=== PATIENT | male | born 1950 | race Caucasian/White ===

== ENCOUNTER 2023-08-31 08:45 | Day surgery (SDC) | payer MEDICARE, OTHER ==
[2023-08-31] VITALS (9 sets, daily range): BP systolic 127–152; BP diastolic 69–109; PULSE 54–79; RESP 12; TEMP 97.5; O2SAT 95–100
[~2023-08-31] VITALS: Ht 170.2 cm; Wt 71.3 kg
[~2023-08-31 08:45] MED LIST: PRAV20TA4 PO
[2023-08-31] MEDS ORDERED: normal saline 1,000 ML IV SCH (09:25)
[2023-08-31] MEDS ORDERED: diphenhydrAMINE 25mg capsule PO PRN (09:25)
[2023-08-31] MEDS ORDERED: sodium bicarbonate 1meq/ml syr 150 ML in dextrose 5%-water 1,000 ML IV SCH (09:25)
[2023-08-31] MEDS ORDERED: GABA-530 PO (09:36)
[2023-08-31] MEDS ORDERED: TERA5CAP4 PO (09:36)
[2023-08-31] MEDS ORDERED: CYAN-34 PO (09:37)
[2023-08-31] MEDS ORDERED: ASPI81TA52 PO (09:37)
[2023-08-31 09:45] LABS: BASOPHILS # (AUTO) 0.1 X10'3 (0-0.2); BASOPHILS % (AUTO) 0.7 % (0-1); EOSINOPHILS # (AUTO) 0.6 X10'3 (0-0.9); EOSINOPHILS % (AUTO) 8.1 % (0-6); HEMATOCRIT 46.3 % (42.0-52.0); HEMOGLOBIN 15.6 g/dl (14.0-17.9); LYMPHOCYTES # (AUTO) 2.6 X10'3 (1.1-4.8); LYMPHOCYTES % (AUTO) 33.1 % (21-51); MEAN CORPUSCULAR HEMOGLOBIN 30.8 PG (27.0-31.0); MEAN CORPUSCULAR HGB CONC 33.8 g/dL (33.0-36.5); MEAN CORPUSCULAR VOLUME 91.1 FL (78-98); MEAN PLATELET VOLUME 6.6 FL (7.4-10.4); MONOCYTES # (AUTO) 0.7 X10'3 (0-0.9); MONOCYTES % (AUTO) 8.3 % (2-12); NEUTROPHILS # (AUTO) 3.9 X10'3 (1.8-7.7); NEUTROPHILS % (AUTO) 49.8 % (42-75); PLATELET COUNT 169 X10'3 (140-440); RED BLOOD COUNT 5.08 X10'6 (4.70-6.10); RED CELL DISTRIBUTION WIDTH 14.2 % (11.5-14.5); WHITE BLOOD COUNT 7.9 X10'3 (4.5-11.0)
[2023-08-31] MEDS ORDERED: heparin 1,000unit/ml 10ml vial 10 ML ONE (10:52)
[2023-08-31] MEDS ORDERED: iohexol 350 MG/ML 50ML vial IV ONE (10:52)
[2023-08-31] MEDS ORDERED: iohexol 350MG/ML 100ml bottle IV ONE (10:52)
[2023-08-31] MEDS ORDERED: LIDOcaine 1% 30ml preserv. free vial ONE (10:52)
[2023-08-31] MEDS ORDERED: fentaNYL/PF 50MCG/1 ML 2ML syringe ONE (10:52)
[2023-08-31] MEDS ORDERED: midazolam 1 mg/ML 2ml injection ONE (10:52)
[2023-08-31 11:09] LABS: ALBUMIN 3.9 G/DL (3.4-5.0); ANION GAP 11 (8-16); BLOOD UREA NITROGEN 12 MG/DL (7-18); BUN/CREATININE RATIO 14.6 (10.0-20.0); CALCIUM 8.2 MG/DL (8.5-10.1); CHLORIDE 104 MMOL/L (99-107); CREATININE 0.82 MG/DL (0.60-1.10); GLUCOSE 139 MG/DL (70-104); POTASSIUM 3.8 MMOL/L (3.5-5.1); SODIUM 140 MMOL/L (135-145); TOTAL CARBON DIOXIDE 25.1 MMOL/L (24-32); eCRCL 73 ML/MIN; eGFR > 90 ML/MIN
[2023-08-31 11:11] LABS: PROTHROMBIN TIME 10.9 SECONDS (9.0-12.0)
[2023-08-31] MEDS ORDERED: HYDROcodone/acetaminophen 10/325mg tab PO PRN (12:55)
[2023-08-31] MEDS ORDERED: HYDROcodone/acetaminophen 5mg/325mg tablet PO PRN (12:55)
[2023-08-31] MEDS ORDERED: proCHLORperazine 10 MG/2 ml inj IV PRN (12:55)
[2023-08-31] MEDS ORDERED: ondansetron/PF 4mg/2ml inj IV PRN (12:55)
[2023-08-31] MEDS ORDERED: normal saline 1000ml 1,000 ML IV SCH (12:55)
== END 2023-08-31 15:45 | disposition home or self-care (01) ==
LOC: CATH LAB 08:45 → SSTAY O 15:45
PROVIDERS: ATTEND Internal Medicine Cardiovascular Disease
DX: I25.118 Atherosclerotic heart disease of native coronary artery with other forms of angina pectoris (principal); E78.5 Hyperlipidemia, unspecified; E11.9 Type 2 diabetes mellitus without complications; G60.9 Hereditary and idiopathic neuropathy, unspecified; Z86.73 Personal history of transient ischemic attack (TIA), and cerebral infarction without residual deficits; Z79.82 Long term (current) use of aspirin; Z79.899 Other long term (current) drug therapy; Z87.891 Personal history of nicotine dependence; Z72.89 Other problems related to lifestyle; Z88.8 Allergy status to other drugs, medicaments and biological substances; Z82.49 Family history of ischemic heart disease and other diseases of the circulatory system
CPT/HCPCS: 36415; 80048; 83735; 85025; 85610; 93005; 93458; 99152; 99153; J1644; J2250; J3010; J3490; J7030; Q0163; Q9967; A6258; C1725; C1760; C1894